=== PATIENT | male | born 1970 | race Caucasian/White ===

== ENCOUNTER 2024-04-08 22:09 | Emergency (ER) | payer OTHER, SELFPAY ==
[2024-04-08 22:16] VITALS: BP 162/94
[2024-04-08 22:33] LABS: % Basophils 0.7 % (0-2); % Eosinophils 1.7 % (0-6); % Immature Granulocytes 0.3 % (0-0.5); % Lymphocytes 32.2 % (20.5-51.1); % Monocytes 6.7 % (1.7-9.3); % Neutrophils 58.4 % (42.2-75.2); Absolute Basophils 0.1 10^3/uL (0-0.2); Absolute Eosinophils 0.2 10^3/uL (0-0.7); Absolute Lymphocytes 3.6 10^3/uL (1.2-3.4); Absolute Monocytes 0.7 10^3/uL (0.1-0.6); Absolute Neutrophils 6.4 10^3/uL (1.4-6.5); Hematocrit 34.7 % (39.0-52.0); Hemoglobin 12.1 g/dL (13.0-18.0); Mean Corp Hgb Conc. 34.9 g/dL (33.0-37.0); Mean Corpuscular Hgb 28.7 pg (27.0-31.0); Mean Corpuscular Volume 82.4 fL (80.0-94.0); Mean Platelet Volume 8.9 fL (7.4-10.4); Nucleated Red Blood Cells % 0 % (-); Platelet Count 320 10^3/uL (130-400); Red Blood Cell Count 4.21 10^6/uL (4.70-6.10); Red Cell Dist. Width 12.8 % (11.5-14.5)
[2024-04-08 22:45] LABS: ALT (SGPT) 16 U/L (0-50); AST (SGOT) 17 U/L (17-59); Albumin 4.8 g/dl (3.5-5.0); Alkaline Phosphatase 42 U/L (38-126); Blood Urea Nitrogen 22 mg/dl (9-20); Calcium 9.6 mg/dl (8.4-10.2); Carbon Dioxide 27 mmol/L (22-30); Chloride 103 mmol/L (98-107); Glucose 104 mg/dl (70-99); Potassium 4.1 mmol/L (3.5-5.1); Sodium 143 mmol/L (135-145); Total Bilirubin 0.2 mg/dl (0.2-1.3); Total Protein 7.2 g/dl (6.3-8.2); eGFR > 60.00
[2024-04-08 22:55] LABS: Troponin I < 0.012 ng/ml
[2024-04-08 23:23] VITALS: BP 150/96
[2024-04-08 23:28] VITALS: BMI 33.4
[2024-04-09] VITALS: BP 132/83
--- NOTE | 2024-04-09 00:02 | ED.GENMED ---
History of Present Illness
General
Chief Complaint: Chest Pain
Source: patient and spouse
Time Seen by Provider: 04/08/24 23:40
History of Present Illness
History of Present Illness:
This patient is a 54-year-old male who says he was feeling perfectly well earlier today. Around 4 PM he developed a 'stabbing' central chest pain lasting about 10 minutes and then resolving. It returned again for a few minutes but then went away
completely when he sat down. He felt perfectly fine again until about 9:30 PM where he noted the gradual onset of pain again in the central part of his chest. This is worse when he tries to take a deep breath or moves a certain way. He denies
dyspnea, leg swelling, recent immobilization or trauma, recent surgery, personal or family history of DVT. He denies a significant family history of vascular/cardiac illness. He denies hemoptysis, fever, chills, abdominal pain. The pain does not
feel 'ripping' or tearing, not abrupt in onset, and does not radiate through to his back. He does have a small amount of pain in his posterior back that 'almost feels like a gas pain'.
Past History
Past History
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
ED Past Surgical History: Other (SCS placed right lower back 05/24)
Social History
Tobacco: Non-smoker
Alcohol: None
Drug: None
Personal:
Living: with family
Employment: Disabled
Phy Exam
Physical Exam
Physical Exam:
GENERAL: Alert , in no apparent distress
EYE: pupils equal and reactive
NECK: Supple, no significant adenopathy.
ENT: o/p clr, mmm.
CARDIAC: Regular rate and rhythm .
LUNGS: Clear breath sounds bilaterally, no acute respiratory distress, no wheezes/rales/rhonchi
ABDOMEN: Soft, without focal tenderness, no r/g, no cvat
NEUROLOGICAL: Alert and oriented, no focal neuro deficits
SKIN: Warm and dry, skin intact.
MUSCULOSKELETAL: No edema, well perfused.
PSYCH: Normal and appropriate interaction.
Patient is holding his arms across his chest because he is so much more uncomfortable with certain movements or deep breath
Scores
Heart Score for Chest Pain Patients
STEMI patient?: Not applicable
Course
Orders/Labs/Results
Orders:
Orders
04/08/24 22:10
Electrocardiogram (*1) Urgent
Reason for Study: Chest Pain
EKG- Treatment ONCE
04/08/24 22:13
CBC/With Diff [Complete Blood Count/With Diff] Urgent
CMP [Comprehensive Metabolic Panel] Urgent
Troponin I Urgent
04/08/24 22:14
Chest [CR Chest - 2 Views ] Urgent
Comment:
Reason For Exam: chest pain
04/09/24 00:00
CT Chest Pe Study Urgent
Comment:
Reason For Exam: CHEST PAIN, PLEURITIC
04/09/24 00:12
Morphine Sulfate 4 mg IV NOW STA
04/09/24 02:12
Morphine Sulfate 4 mg IV NOW STA
04/09/24 03:06
Ketorolac [Toradol] 15 mg IV NOW STA
04/09/24 03:07
Electrocardiogram (*1) Urgent
Reason for Study: Chest Pain
EKG- Treatment ONCE
04/09/24 03:39
Troponin I Urgent
Abnormal Lab Results
04/08/24
22:13
WBC 11.0 H 10^3/uL
(4.8-10.8)
RBC 4.21 L 10^6/uL
(4.70-6.10)
Hgb 12.1 L g/dL
(13.0-18.0)
Hct 34.7 L %
(39.0-52.0)
Absolute Lymphs (auto) 3.6 H 10^3/uL
(1.2-3.4)
Absolute Monos (auto) 0.7 H 10^3/uL
(0.1-0.6)
BUN 22 H mg/dl
(9-20)
Glucose 104 H mg/dl
(70-99)
04/08/24 22:13
04/08/24 22:13
Vital Signs
Initial and Last Documented VS:
Initial Vital Signs
Temp Pulse Resp BP Pulse Ox
98.4 F 80 17 162/94 99
04/08/24 22:16 04/08/24 22:16 04/08/24 22:16 04/08/24 22:16 04/08/24 22:16
Last Documented Vital Signs
Temp Pulse Resp BP Pulse Ox
98.4 F 75 13 135/83 96
04/08/24 22:16 04/09/24 02:15 04/09/24 02:15 04/09/24 02:00 04/09/24 02:15
*Critical Care Note
Total Time (30-74mins, 75-104mins- exclusive of procedures): Not Applicable
Update Note
Update Note:
Patient presents to the Emergency Department with ___chest pain
Number and Complexity of Problems Addressed at the Encounter
� Chronic conditions affecting care:
� Acute Exacerbation and/or Progression of Chronic Illness:
� Differential Diagnosis includes: But not limited to pleurisy, PE, ACS, pneumonia, dissection, etc.
Amount and/or Complexity of Data to be Reviewed and Analyzed
� I performed an independent evaluation of and my interpretation is:
EKG: Read by me, normal sinus rhythm, no acute ischemia, no pericarditis
CT: Read by vision, no pulmonary emboli seen to the level of the segmental branches no consolidation or other acute lung abnormality visualized aorta appears normal no pleural effusion.
Xrays: Read by radiology NAD
Laboratory Studies: Unremarkable
Other:
� Review of other/old records reveals:
� Clinical information was obtained by an independent historian: who is bedside
� Prescriptions/Medications Considered but not given:
� Further testing considered but not performed:
Risk of Complications and/or Morbidity or Mortality of Patient Management
� Social determinants of health affecting care:
� Discussion with other providers (PCP, Hospitalists, Consultants, etc):
� Escalation of care including admission/observation vs risk of discharge considered: 3:08 AM Long discussion with patient and his . I again reviewed the history with him, and his pain does sound very pleuritic in nature, he
describes coughing and noticing that the pain was worse, not wanting to take a deep breath because it makes it worse, etc. Given no PE seen, and also no tachycardia, hypoxia, etc., this is obviously less likely. Pleurisy a more likely diagnosis.
Consideration for aortic dissection initially, however aorta noted to be normal on CT. His history and physical are not particularly characteristic as he does not describe it as sudden onset, ripping or tearing, radiating through to his back,
associated with neurofindings, associated family history, etc. etc. Will repeat ECG and troponin now, dose of nonsteroidal, and reassessment.
ED Attending Note
-
Portions of this chart may have been created with voice recognition software.� Occasional wrong word or��sound alike� substitutions may have occurred due to the inherent limitations of voice recognition software.
Discharge Plan
Departure
Patient Disposition: Home (Routine Discharge)
Date of Disposition: 04/09/24
Time of Disposition: 04:32
Patient with high blood pressure during this ER visit?: Yes
Condition: Good
Discharge Problem:
Chest pain
Instructions: Chest Pain PCP Follow Up, BLOOD PRESSURE
Prescriptions:
No Action
oxycodone-acetaminophen [Percocet] 1 EACH tablet
1 ea PO BID PRN (Reason: pain) Qty: 14 0RF
Referrals:
Kemar Rojas MD [Family Provider] - Follow up in 2-3 days
Activity Restrictions/Additional Instructions:
PLEASE TAKE MOTRIN/NSAIDS RECOMMENDED FOR PAIN. IF YOU DEVELOP RECURRENT/NEW/PERSISTENT PAIN, ANY TROUBLE BREATHING, NUMBNESS, WEAKNESS, DIZZINESS, SWELLING, OR OTHER WORRISOME SIGNS, GO TO THE ER IMMEDIATELY!
Interventions
Interventions:
*Risk Screen - Suicide Last Done: 04/08/24 23:29
*General Assessment Last Done: 04/08/24 22:11
*Neglect/Abuse Screening Last Done: 04/08/24 23:29
ED- Fall Risk Assessment Last Done: 04/08/24 23:29
*ED COVID-19 Vaccine History Last Done: 04/08/24 23:29
*Nursing Disposition Last Done: 04/09/24 04:45
ED- Cardiac Assessment Last Done: 04/09/24 03:20
Discharge Date and Time
Discharge Date/Time: 04/09/24 04:45
Print Language: [email or web address]
[2024-04-09] MEDS: MORPHINE SULFATE 4 MG IV ×2 (00:15→02:15)
[2024-04-09 01:00] VITALS: BP 136/79
[2024-04-09 02:00] VITALS: BP 135/83
[2024-04-09] MEDS: TORADOL 15 MG IV (03:40)
[2024-04-09 04:27] LABS: Troponin I < 0.012 ng/ml
== END 2024-04-09 04:45 | disposition home or self-care (01) ==
LOC: EMR 22:09
PROVIDERS: EMERGENCY PHYSICIAN Emergency Medicine; FAMILY PHYSICIAN Family Medicine
DX: R07.89 Other chest pain (principal); E78.00 Pure hypercholesterolemia, unspecified; I10 Essential (primary) hypertension; F41.8 Other specified anxiety disorders; J45.909 Unspecified asthma, uncomplicated
CPT/HCPCS: 99284; 96374; 96375; 96376; 71046; 71275; 80053; 84484; 85025; 93005; Q9967